=== PATIENT | female | born 1995 | race Asian ===

== ENCOUNTER 2021-01-12 08:40 | Inpatient (IN) | payer BC ==
[~2021-01-12] VITALS: Ht 160 cm; Wt 57.4 kg
[2021-01-12] MEDS ORDERED: CLEO300C2 PO (08:47)
[2021-01-12] MEDS ORDERED: LEXA1TAB PO (08:47)
[2021-01-12] MEDS ORDERED: SPRI28TA PO (08:47)
[2021-01-12] MEDS ORDERED: IBUP200T45 PO (08:47)
[2021-01-12] MEDS ORDERED: KETOROLAC 30 MG/ML 1ML VIAL IV ONE (11:00)
[2021-01-12] MEDS ORDERED: dexameTHASONE 20MG/5ML VIAL (J1100 PER 1MG) IV ONE (11:00)
[2021-01-12] MEDS ORDERED: AMPICILLIN SOD/SULBACTAM SOD 3 GM in D5W MINI-BAG PLUS 100 ML IV ONE (11:00)
[2021-01-12] MEDS ORDERED: NS 1,000 ML IV ONE (11:10)
[2021-01-12 11:30] LABS: BASO % 0.2 % (0.0-1.0); EOS % 0.1 % (0.0-3.0); HEMOGLOBIN 14.7 g/dl (12.0-15.5); LYMPH # 1.6 10^3/uL (1.5-5.0); LYMPH % 13.9 % (24.0-44.0); MEAN CORPUSCULAR HEMOGLOBIN 31.1 pg (27.0-33.0); MEAN CORPUSCULAR HGB CONC 33.4 g/dl (32.0-36.5); MEAN CORPUSCULAR VOLUME 93.2 fl (80.0-96.0); MONO # 0.9 10^3/uL (0.0-0.8); MONO % 7.5 % (2.0-8.0); NEUTROPHILS # 9.2 10^3/uL (1.5-8.5); PLATELET COUNT, AUTOMATED 244 10^3/uL (150-450); RED BLOOD COUNT 4.72 10^6/uL (4.00-5.40); WHITE BLOOD COUNT 11.8 10^3/uL (4.0-10.0)
[2021-01-12 12:03] LABS: ERYTHROCYTE SEDIMENTATION RATE 33 mm/hr (0-20)
[2021-01-12] MEDS ORDERED: HOME MED LIST COMPLETE! XX SCH (12:05)
[2021-01-12] MEDS ORDERED: ISOVUE-370 76% 100ML VIAL As Ordered ONE (12:25)
[2021-01-12 12:27] LABS: RSV AMPLIFICATION NEGATIVE (NEGATIVE)
--- NOTE | 2021-01-12 13:03 | REPVR ---
PROCEDURE INFORMATION: Exam: CT Maxillofacial With Contrast Exam date and time: 01/12/2021 12:38 PM Age: 25 years old Clinical indication: Eye pain; Bilateral; Additional info: L facial and L periorbital redness/swelling TECHNIQUE: Imaging protocol: Computed tomography images of the face with intravenous contrast. Radiation optimization: All CT scans at this facility use at least one of these dose optimization techniques: automated exposure control; mA and/or kV adjustment per patient size (includes targeted exams where dose is matched to clinical indication); or iterative reconstruction. Contrast material: ISO 370; Contrast volume: 100 ml; Contrast route: INTRAVENOUS (IV); COMPARISON: No relevant prior studies available. FINDINGS: Orbital cavity: The orbital structures are unremarkable. Bones/joints: No acute fracture. Paranasal sinuses: Moderate mucosal thickening is present in the left maxillary sinus. There are no air-fluid levels. Soft tissues: Soft tissue swelling and inflammation in the left face likely represents reactive cellulitis. Lymph nodes: Multiple small bilateral submandibular and cervical chain lymph nodes are present. Dental: Extensive dental disease is present. There is a tiny periapical lucency or abscess associated with the maxillary left lateral incisor tooth. Erosion of the anterior alveolar ridge is likely present. There is an adjacent soft tissue or subperiosteal abscess along the anterior left maxilla, measuring 2.2 x 1.2 x 0.6 cm (craniocaudal, transverse, and AP diameter respectively. IMPRESSION: 2 cm abscess along the anterior left aspect of the maxilla due to an infected maxillary left lateral incisor tooth. Reactive left facial cellulitis is present. Electronically signed by: Toribio Salgado On 01/12/2021 13:03:21 PM
--- NOTE | 2021-01-12 13:07 | REPVR ---
PROCEDURE INFORMATION: Exam: CT Neck With Contrast Exam date and time: 01/12/2021 12:38 PM Age: 25 years old Clinical indication: Painful swallowing; Additional info: L facial/l periorbital redness/swelling/ C/O "throat closing TECHNIQUE: Imaging protocol: Computed tomography images of the neck with contrast. Radiation optimization: All CT scans at this facility use at least one of these dose optimization techniques: automated exposure control; mA and/or kV adjustment per patient size (includes targeted exams where dose is matched to clinical indication); or iterative reconstruction. Contrast material: ISO 370; Contrast volume: 100 ml; Contrast route: INTRAVENOUS (IV); COMPARISON: No relevant prior studies available. FINDINGS: Paranasal sinuses: Moderate mucosal thickening is present in the left maxillary sinus. Nasopharynx: Unremarkable. Dental: Left facial cellulitis is present due to an infected maxillary left lateral incisor tooth. A 2 cm abscess along the anterior left maxilla is noted. Please see the dedicated face CT report for further details. Oropharynx: Unremarkable. No significant tonsillar enlargement. Hypopharynx: Unremarkable. Larynx: Unremarkable. Normal epiglottis. Retropharyngeal space: Unremarkable. Submandibular/Parotid glands: Normal. Glands are normal in size. Thyroid: Normal. No enlarged or calcified nodules. Lymph nodes: There are multiple small nonspecific bilateral submandibular and cervical chain lymph nodes are present. Trachea: Visualized trachea is unremarkable. Lungs: Unremarkable as visualized. Bones/joints: Unremarkable. No acute fracture. IMPRESSION: Left facial cellulitis is present due to an infected maxillary left lateral incisor tooth. A 2 cm abscess along the anterior left maxilla is noted. Please see the dedicated face CT report for further details. Electronically signed by: Toribio Salgado On 01/12/2021 13:07:23 PM
--- NOTE | 2021-01-12 14:39 | HPEPDOC ---
[facility] Medical History & Physical Date of Admission Jan 12, 2021 Date of Service: Jan 12, 2021 History and Physical CHIEF COMPLAINT: TOOTH PAIN HISTORY OF PRESENT ILLNESS: 25yo female presents for 3 day history of worsening tooth ache with associated left upper facial pain and erythema. She followed up with a dentist, who prescribed Clindamycin with no improvement of her symptoms. She denies any trauma or previous issues with dental abscesses. She states she did feel feverish at home. No other associated complaints. Denies changes in vision or pain with ocular movements. Denies drooling or difficulty swalling. Denies shortness of breath, chest pain, abdominal pain, N/V/D or depressed mood. 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 Denies illicit drug use, notes social alcohol use. FAMILY HISTORY: Patient is adopted. ALLERGIES: Please see below. REVIEW OF SYSTEMS: Negative except as per HPI. HOME MEDICATIONS: Please see below. PHYSICAL EXAMINATION: Vital Signs: reviewed and within normal limits General: NAD, lying comfortably in bed HEENT: NC, EOMI, left upper facial swelling, erythema Neck: supple, no masses Chest: lungs CTA B/L Heart: +S1S2, RRR Abd: soft, NT, ND, +BS Ext: no edema Skin: no rashes MSK: full ROM at large joints Neuro: no gross focal deficits Psych: AAOx3 LABORATORY DATA: See below. MICROBIOLOGY: Please see below. A/P: 25 year old female for dental abscess with facial cellulitis. #dental abscess - IV Unasyn - plan for I&D tomorrow with Dr. Lopez in his office Vital Signs Vital Signs Date Time Temp Pulse Resp B/P (MAP) Pulse Ox O2 Delivery O2 Flow Rate FiO2 01/12/21 08:41 98.3 89 14 141/107 (118) 98 Room Air Laboratory Data Labs 24H Laboratory Tests 2 01/12/21 11:08: Immature Granulocyte % (Auto) 0.3, Neutrophils (%) (Auto) 78.0H, Lymphocytes (%) (Auto) 13.9L, Monocytes (%) (Auto) 7.5, Eosinophils (%) (Auto) 0.1, Basophils (%) (Auto) 0.2, Neutrophils # (Auto) 9.2H, Lymphocytes # (Auto) 1.6, Monocytes # (Auto) 0.9H, Eosinophils # (Auto) 0.0, Basophils # (Auto) 0.0, Nucleated Red Blood Cells % (auto) 0.0, Erythrocyte Sedimentation Rate 33H, C-Reactive Protei n, Quantitative 9.31H, Coronavirus (COVID-19)(PCR) NEGATIVE, Influenza Type A (RT-PCR) NEGATIVE, Influenza Type B (RT-PCR) NEGATIVE, Respiratory Syncytial Virus (PCR) NEGATIVE 01/12/21 11:09: Lactic Acid Level 0.8 01/12/21 11:13: POC Beta HCG, Quantitative < 5.0 01/12/21 11:32: POC Glucose (Misc Panel) 95, POC Sodium (Misc Panel) 139, POC Potassium (Misc Panel) 3.6, POC Chloride (Misc Panel) 100, POC Total CO2 (Misc Panel) 28.0H, POC Blood Urea Nitrogen (Misc Panel 7L, POC Ionized Calcium (Misc Panel) 4.5, POC Creatinine (Misc Panel) 0.6, POC Hematocrit (Misc Panel) 41.0 CBC/BMP Laboratory Tests 01/12/21 11:08 Microbiology Microbiology 01/12/21 Blood Culture, Received Pending 01/12/21 Blood Culture, Received Pending Home Medications Scheduled Clindamycin Hcl (Cleocin HCl) 300 Mg Capsule, 300 MG PO QID Escitalopram Oxalate (Lexapro) 10 Mg Tablet, 10 MG PO DAILY Norgestimate-Ethinyl Estradiol (Sprintec 28 Day Tablet) 1 Each Tablet, 1 TAB PO DAILY Scheduled PRN Ibuprofen (Ibu-200) 200 Mg Tablet, 400 MG PO Q4-6HP PRN for fever Allergies Coded Allergies: No Known Drug Allergies (Verified Allergy, Unknown, 01/12/21) A-FIB/CHADSVASC A-FIB History Current/History of A-Fib/PAF?: No NERY PENA MD Jan 12, 2021 14:39
[2021-01-12 16:00] VITALS: BP 133/82
[2021-01-12] MEDS: AMPICILLIN SOD/SULBACTAM SOD 3 GM in D5W MINI-BAG PLUS 100 ML IV SCH ×2 (16:39→23:13)
[2021-01-12] MEDS ORDERED: KETOROLAC 30 MG/ML 1ML VIAL IV PRN (19:50)
[2021-01-12] MEDS: KETOROLAC 30 MG/ML 1ML VIAL IV PRN (20:35)
[2021-01-12 22:00] VITALS: BP 135/82
[2021-01-13] MEDS: AMPICILLIN SOD/SULBACTAM SOD 3 GM in D5W MINI-BAG PLUS 100 ML IV SCH (04:53)
[2021-01-13] MEDS: KETOROLAC 30 MG/ML 1ML VIAL IV PRN (04:58)
[2021-01-13 06:00] VITALS: BP 135/75
[2021-01-13 06:04] LABS: HEMATOCRIT 38.6 % (36.0-47.0); HEMOGLOBIN 12.9 g/dl (12.0-15.5); MEAN CORPUSCULAR HEMOGLOBIN 30.9 pg (27.0-33.0); MEAN CORPUSCULAR HGB CONC 33.4 g/dl (32.0-36.5); MEAN CORPUSCULAR VOLUME 92.3 fl (80.0-96.0); PLATELET COUNT, AUTOMATED 264 10^3/uL (150-450); RED BLOOD COUNT 4.18 10^6/uL (4.00-5.40); WHITE BLOOD COUNT 10.6 10^3/uL (4.0-10.0)
[2021-01-13 06:36] LABS: BLOOD UREA NITROGEN 13 MG/DL (7-18); CALCIUM LEVEL 8.6 MG/DL (8.5-10.1); CARBON DIOXIDE LEVEL 28 MEQ/L (21-32); CHLORIDE LEVEL 106 MEQ/L (98-107); CREATININE FOR GFR 0.59 MG/DL (0.55-1.30); GLOMERULAR FILTRATION RATE > 60.0 (>60); GLUCOSE, FASTING 143 MG/DL (70-100); POTASSIUM SERUM 4.1 MEQ/L (3.5-5.1); SODIUM LEVEL 140 MEQ/L (136-145)
[2021-01-13] MEDS ORDERED: ESCITALOPRAM OXALATE 10 MG TAB (LEXAPRO) PO SCH (09:00)
[2021-01-13] MEDS ORDERED: AMPICILLIN SOD/SULBACTAM SOD 3 GM in D5W MINI-BAG PLUS 100 ML IV SCH (09:30)
== END 2021-01-13 11:04 | disposition home or self-care (01) | DRG 114 ==
LOC: M ED 08:40 → M ED INP 14:31 → ENRESERV 15:05 → M MSPAV 15:57
PROVIDERS: ADMIT Internal Medicine; ATTEND Internal Medicine
DX: K04.7 Periapical abscess without sinus (principal); L03.211 Cellulitis of face; Z20.822 Contact with and (suspected) exposure to COVID-19; Z79.899 Other long term (current) drug therapy